=== PATIENT | male | born 1960 | race Caucasian/White ===

== ENCOUNTER 2017-11-09 15:15 | Emergency (ER) | payer OTHER ==
[2017-11-09] MEDS: morphine 4 MG/ML VIAL IV (16:06)
[2017-11-09 16:12] LABS: ADD MAN DIFF? NO
[2017-11-09 16:14] LABS: WHITE BLOOD COUNT 5.6 10^3/ul (4.8-10.8)
[2017-11-09 16:14] LABS: BASOPHILS % 0.5 % (0.0-2.0); EOSINOPHILS # 0.2 10^3/ul (0.0-0.5); HEMATOCRIT 37.7 % (42.0-52.0); HEMOGLOBIN 13.6 g/dl (14.0-18.0); LYMPHOCYTES # 1.6 10^3/ul (0.8-2.9); LYMPHOCYTES % 29.2 % (15.0-51.0); MEAN CORPUSCULAR HEMOGLOBIN 31.6 pg (29.0-33.0); MEAN CORPUSCULAR HGB CONC 36.1 g/dl (32.0-37.0); MEAN CORPUSCULAR VOLUME 87.5 fl (82.0-101.0); MEAN PLATELET VOLUME 10.7 fl (7.4-10.4); MONOCYTE # 0.6 10^3/ul (0.3-0.9); NEUTROPHIL # 3.2 10^3/ul (1.6-7.5); NEUTROPHILS % 57.1 % (39.0-77.0); PLATELET COUNT 248 10^3/UL (140-415); RED BLOOD COUNT 4.31 10^6/ul (4.70-6.10)
[2017-11-09 16:22] LABS: ADD UMIC YES; UR ASCORBIC ACID 20 mg/dL (NEGATIVE); UR BILIRUBIN (Dip) NEGATIVE (NEGATIVE); UR BLOOD (Dip) 3+ mg/dL (NEGATIVE); UR CLARITY SLIGHTLY CLOUDY (CLEAR); UR COLOR YELLOW (YELLOW); UR GLUCOSE (Dip) 3+ mg/dL (NEGATIVE); UR KETONES (Dip) NEGATIVE (NEGATIVE); UR LEUKOCYTE ESTERASE (Dip) NEGATIVE Leu/ul (NEGATIVE); UR NITRITE (Dip) NEGATIVE (NEGATIVE); UR RBC > 182 /HPF (0-5); UR SPECIFIC GRAVITY (Dip) 1.018 (1.003-1.030); UR TOTAL PROTEIN (Dip) 2+ mg/dl (NEGATIVE); UR UROBILINOGEN (Dip) NEGATIVE (NEGATIVE); UR WBC 9 /HPF (0-5)
[2017-11-09 17:09] LABS: ALANINE AMINOTRANSFERASE 44 IU/L (13-69); ALBUMIN/GLOBULIN RATIO 1.25; ALKALINE PHOSPHATASE 98 IU/L (42-121); ANION GAP 19 (8-16); ASPARTATE AMINO TRANSFERASE 35 IU/L (15-46); BILIRUBIN,INDIRECT 0.2 mg/dl (0-1.1); BILIRUBIN,TOTAL 0.2 mg/dl (0.2-1.3); BLOOD UREA NITROGEN 31 mg/dl (7-20); CALCIUM 10.4 mg/dl (8.4-10.2); CARBON DIOXIDE 19 mmol/L (21-31); CHLORIDE 104 mmol/L (97-110); CREATININE 1.18 mg/dl (0.61-1.24); GLUCOSE 302 mg/dl (70-220); POTASSIUM 4.9 mmol/L (3.5-5.1); SODIUM 137 mmol/L (135-144)
[2017-11-09] MEDS: SOD CHLORIDE 0.9% 500 ML IV (17:17)
[2017-11-09] MEDS: SOD CHLORIDE 0.9% 1,000 ML IV (17:17)
[2017-11-09] MEDS: OXYCODONE/ACETAMINOPHEN (10/325) TAB PO (18:18)
== END 2017-11-09 18:32 | disposition home or self-care (01) ==
LOC: E/R 15:15
DX: R10.9 Unspecified abdominal pain (principal); I10 Essential (primary) hypertension
CPT/HCPCS: 36415; 71045; 76775; 80053; 81001; 85025; 87086; 96374; 99285-25

== ENCOUNTER 2017-11-14 16:42 | Emergency (ER) | payer OTHER ==
[2017-11-14] MEDS: FENTAnyl 50 MCG/ML VIAL IV (17:17)
[2017-11-14] MEDS: ONDANSETRON 4 MG INJ IV (17:17)
[2017-11-14] MEDS: SOD CHLORIDE 0.9% 1,000 ML IV (17:17)
[2017-11-14] MEDS: KETOROLAC 15 MG INJ IV (17:17)
[2017-11-14 17:38] LABS: ADD MAN DIFF? NO
[2017-11-14 17:40] LABS: BASOPHILS % 0.6 % (0.0-2.0); EOSINOPHILS # 0.2 10^3/ul (0.0-0.5); EOSINOPHILS % 3.4 % (0.0-7.0); HEMATOCRIT 35.9 % (42.0-52.0); LYMPHOCYTES # 1.4 10^3/ul (0.8-2.9); MEAN CORPUSCULAR HEMOGLOBIN 31.6 pg (29.0-33.0); MEAN CORPUSCULAR HGB CONC 36.2 g/dl (32.0-37.0); MEAN CORPUSCULAR VOLUME 87.3 fl (82.0-101.0); MEAN PLATELET VOLUME 10.5 fl (7.4-10.4); MONOCYTE # 0.4 10^3/ul (0.3-0.9); MONOCYTES % 9.2 % (0.0-11.0); NEUTROPHIL # 2.6 10^3/ul (1.6-7.5); NEUTROPHILS % 56.6 % (39.0-77.0); PLATELET COUNT 262 10^3/UL (140-415); RED BLOOD COUNT 4.11 10^6/ul (4.70-6.10); RED CELL DISTRIBUTION WIDTH 12.3 % (11.5-14.5)
[2017-11-14 17:40] LABS: WHITE BLOOD COUNT 4.7 10^3/ul (4.8-10.8)
[2017-11-14 17:59] LABS: ALANINE AMINOTRANSFERASE 99 IU/L (13-69); ALBUMIN 4.9 g/dl (3.3-4.9); ALBUMIN/GLOBULIN RATIO 1.32; ALKALINE PHOSPHATASE 86 IU/L (42-121); ANION GAP 16 (8-16); ASPARTATE AMINO TRANSFERASE 108 IU/L (15-46); BILIRUBIN,INDIRECT 0.3 mg/dl (0-1.1); BILIRUBIN,TOTAL 0.3 mg/dl (0.2-1.3); BLOOD UREA NITROGEN 19 mg/dl (7-20); CALCIUM 10.2 mg/dl (8.4-10.2); CARBON DIOXIDE 21 mmol/L (21-31); CHLORIDE 106 mmol/L (97-110); CREATININE 0.95 mg/dl (0.61-1.24); GLUCOSE 292 mg/dl (70-220); LIPASE 225 U/L (23-300); SODIUM 138 mmol/L (135-144); TOTAL PROTEIN 8.6 g/dl (6.1-8.1)
[2017-11-14 20:48] LABS: URINE BLOOD (Dip) POC 3+ (NEGATIVE); URINE KETONES (Dip) POC Negative (NEGATIVE); URINE LEUKOCYTE EST (Dip) POC Negative (NEGATIVE); URINE NITRITE (Dip) POC Negative (NEGATIVE); URINE TOTAL PROTEIN POC 2+ (NEGATIVE)
[2017-11-14 20:48] LABS: URINE PH (Dip) POC 5.5 (5.0-8.5)
[2017-11-14] MEDS: morphine 4 MG/ML VIAL IV (20:51)
== END 2017-11-14 21:21 | disposition home or self-care (01) ==
LOC: E/R 16:42
DX: N20.0 Calculus of kidney (principal); D64.9 Anemia, unspecified; R74.0 Nonspecific elevation of levels of transaminase and lactic acid dehydrogenase [LDH]; I10 Essential (primary) hypertension; E11.65 Type 2 diabetes mellitus with hyperglycemia; Z79.02 Long term (current) use of antithrombotics/antiplatelets; Z79.4 Long term (current) use of insulin
CPT/HCPCS: 36415; 71045; 74176; 80053; 81003; 83690; 85025; 93005; 96374; 96375; 99285-25

== ENCOUNTER 2017-11-21 13:22 | Emergency (ER) | payer OTHER ==
[2017-11-21] MEDS: ONDANSETRON (ODT) 4 MG TAB ODT (16:09)
[2017-11-21] MEDS: KETOROLAC 30 MG INJ IM (16:10)
== END 2017-11-21 16:41 | disposition home or self-care (01) ==
LOC: E/R 13:22
DX: R10.9 Unspecified abdominal pain (principal); I10 Essential (primary) hypertension; E11.9 Type 2 diabetes mellitus without complications; Z79.4 Long term (current) use of insulin; Z79.84 Long term (current) use of oral hypoglycemic drugs
CPT/HCPCS: 96372; 99284-25

== ENCOUNTER 2018-02-07 18:58 | Inpatient (IN) | payer OTHER ==
[2018-02-07] MEDS ORDERED: ONDANSETRON 4 MG INJ IV (20:30)
[2018-02-07] MEDS ORDERED: ACETAMINOPHEN 325 MG TAB PO (20:30)
[2018-02-07] MEDS ORDERED: DOCUSATE SODIUM 100 MG CAP PO (20:30)
[2018-02-07] MEDS ORDERED: BISACODYL (EC) 5 MG TAB PO (20:30)
[2018-02-07] MEDS ORDERED: NITROGLYCERIN (SL) 0.4 MG TAB SL (20:30)
[2018-02-07] MEDS ORDERED: NACL 0.9% 3 ML SYG IV (20:30)
[2018-02-07] MEDS ORDERED: TAMSULOSIN (SR) 0.4 MG CAP PO (21:00)
[2018-02-07 21:03] LABS: ADD MAN DIFF? NO
[2018-02-07 21:09] LABS: BASOPHILS % 0.8 % (0.0-2.0); EOSINOPHILS # 0.2 10^3/ul (0.0-0.5); EOSINOPHILS % 3.5 % (0.0-7.0); HEMATOCRIT 36.6 % (42.0-52.0); HEMOGLOBIN 13.3 g/dl (14.0-18.0); LYMPHOCYTES # 1.7 10^3/ul (0.8-2.9); LYMPHOCYTES % 32.2 % (15.0-51.0); MEAN CORPUSCULAR HEMOGLOBIN 32.5 pg (29.0-33.0); MEAN CORPUSCULAR HGB CONC 36.3 g/dl (32.0-37.0); MEAN CORPUSCULAR VOLUME 89.5 fl (82.0-101.0); MEAN PLATELET VOLUME 9.8 fl (7.4-10.4); MONOCYTE # 0.5 10^3/ul (0.3-0.9); MONOCYTES % 8.9 % (0.0-11.0); NEUTROPHIL # 2.8 10^3/ul (1.6-7.5); NEUTROPHILS % 54.4 % (39.0-77.0); PLATELET COUNT 238 10^3/UL (140-415); RED BLOOD COUNT 4.09 10^6/ul (4.70-6.10); RED CELL DISTRIBUTION WIDTH 12.3 % (11.5-14.5)
[2018-02-07 21:09] LABS: WHITE BLOOD COUNT 5.2 10^3/ul (4.8-10.8)
[2018-02-07 21:28] LABS: ALANINE AMINOTRANSFERASE 67 IU/L (13-69); ALBUMIN 4.6 g/dl (3.3-4.9); ALBUMIN/GLOBULIN RATIO 1.43; ALKALINE PHOSPHATASE 55 IU/L (42-121); ANION GAP 15 (8-16); ASPARTATE AMINO TRANSFERASE 57 IU/L (15-46); BILIRUBIN,INDIRECT 0.4 mg/dl (0-1.1); BILIRUBIN,TOTAL 0.4 mg/dl (0.2-1.3); BLOOD UREA NITROGEN 19 mg/dl (7-20); CALCIUM 10.2 mg/dl (8.4-10.2); CARBON DIOXIDE 21 mmol/L (21-31); CHLORIDE 108 mmol/L (97-110); CREATINE KINASE 91 IU/L (23-200); GLUCOSE 123 mg/dl (70-220); POTASSIUM 4.1 mmol/L (3.5-5.1); SODIUM 140 mmol/L (135-144); TOTAL PROTEIN 7.8 g/dl (6.1-8.1)
[2018-02-07 21:40] LABS: CK INDEX 1.1; CK-MB 1.01 ng/ml (0.0-2.4); TROPONIN-I < 0.012 ng/ml (0.000-0.120)
[2018-02-07] MEDS: METOPROLOL 50 MG TAB PO (21:51)
[2018-02-07] MEDS: GEMFIBROZIL 600 MG TAB PO (21:52)
[2018-02-07] MEDS: EZETIMIBE 10 MG TAB PO (21:52)
[2018-02-07] MEDS ORDERED: LISPRO SQ (22:30)
[2018-02-07] MEDS ORDERED: GLUCOSE GEL 15 GRAM TUBE BUCCAL (22:30)
[2018-02-07] MEDS ORDERED: [UNRECOGNIZED DRUG - OTHER] SQ (22:30)
[2018-02-07] MEDS ORDERED: INSULIN LISPRO PROTAMIN SQ (22:30)
[2018-02-07] MEDS ORDERED: GLUCOSE GEL 15 GRAM TUBE PO ×2 (22:30)
[2018-02-07] MEDS ORDERED: DEXTROSE 50% 50 ML SYRINGE IV ×2 (22:30)
[2018-02-07] MEDS ORDERED: GLUCAGON 1 MG INJ IM (22:30)
[2018-02-08] MEDS: INSULIN LISPRO PROT/LISP (75/25) 3ML KWIKPEN SC ×3 (00:21→21:38)
[2018-02-08] MEDS: INSULIN ASPART [NOVOLOG] 3 ML PEN SC ×5 (00:21→21:41)
[2018-02-08] MEDS: KETOROLAC 15 MG INJ IV ×2 (00:28→15:33)
[2018-02-08] MEDS: ACCU-CHEK XX (02:00)
[2018-02-08 04:43] LABS: ADD MAN DIFF? NO
[2018-02-08 04:45] LABS: WHITE BLOOD COUNT 5.6 10^3/ul (4.8-10.8)
[2018-02-08 04:45] LABS: BASOPHILS % 0.5 % (0.0-2.0); EOSINOPHILS # 0.2 10^3/ul (0.0-0.5); EOSINOPHILS % 3.6 % (0.0-7.0); HEMATOCRIT 35.5 % (42.0-52.0); HEMOGLOBIN 12.7 g/dl (14.0-18.0); LYMPHOCYTES # 1.4 10^3/ul (0.8-2.9); LYMPHOCYTES % 25.9 % (15.0-51.0); MEAN CORPUSCULAR HEMOGLOBIN 31.8 pg (29.0-33.0); MEAN CORPUSCULAR HGB CONC 35.8 g/dl (32.0-37.0); MONOCYTE # 0.6 10^3/ul (0.3-0.9); NEUTROPHIL # 3.3 10^3/ul (1.6-7.5); NEUTROPHILS % 58.6 % (39.0-77.0); PLATELET COUNT 244 10^3/UL (140-415); RED BLOOD COUNT 3.99 10^6/ul (4.70-6.10); RED CELL DISTRIBUTION WIDTH 12.2 % (11.5-14.5)
[2018-02-08 05:07] LABS: CREATINE KINASE 75 IU/L (23-200)
[2018-02-08 05:17] LABS: CK INDEX 1.5
[2018-02-08 05:33] LABS: ALANINE AMINOTRANSFERASE 65 IU/L (13-69); ALBUMIN/GLOBULIN RATIO 1.25; ALKALINE PHOSPHATASE 56 IU/L (42-121); ANION GAP 13 (8-16); ASPARTATE AMINO TRANSFERASE 49 IU/L (15-46); BILIRUBIN,INDIRECT 0.2 mg/dl (0-1.1); BILIRUBIN,TOTAL 0.2 mg/dl (0.2-1.3); BLOOD UREA NITROGEN 25 mg/dl (7-20); CALCIUM 10.2 mg/dl (8.4-10.2); CARBON DIOXIDE 22 mmol/L (21-31); CHLORIDE 110 mmol/L (97-110); CHOL/HDL RATIO 6.2 RATIO; CHOLESTEROL 211 mg/dl (100-200); CREATININE 1.22 mg/dl (0.61-1.24); GLUCOSE 121 mg/dl (70-220); HDL CHOLESTEROL 34 mg/dl (28-71); LDL CHOLESTEROL,CALCULATED 123 mg/dl; MAGNESIUM 1.9 mg/dl (1.7-2.5); SODIUM 141 mmol/L (135-144); TOTAL PROTEIN 7.2 g/dl (6.1-8.1); TRIGLYCERIDES 269 mg/dl (0-149)
[2018-02-08 05:46] LABS: D-DIMER 377.13 ng/ml (<460)
[2018-02-08 05:57] LABS: TROPONIN-I < 0.012 ng/ml (0.000-0.120)
[2018-02-08 06:12] LABS: HEMOGLOBIN A1C 9.2 % (0-5.9)
[2018-02-08] MEDS ORDERED: THIAMINE PO (09:00)
[2018-02-08] MEDS: BENAZEPRIL 40 MG TAB PO (09:02)
[2018-02-08] MEDS: MULTIVITAMINS THERAPEUTIC TAB PO (09:02)
[2018-02-08] MEDS: FISH OIL 1,000 MG CAP PO (09:02)
[2018-02-08] MEDS: CLOPIDOGREL 75 MG TAB PO (09:03)
[2018-02-08] MEDS: THIAMINE 100 MG TAB PO (09:03)
[2018-02-08] MEDS: GEMFIBROZIL 600 MG TAB PO ×2 (09:03→21:29)
[2018-02-08] MEDS: MULTIVITAMINS/MINERALS TAB PO (09:03)
[2018-02-08] MEDS: VITAMIN E 1,000 UNIT CAP PO (09:03)
[2018-02-08] MEDS: METOPROLOL 50 MG TAB PO ×2 (09:04→21:30)
[2018-02-08 15:11] LABS: CREATINE KINASE 61 IU/L (23-200)
[2018-02-08 15:22] LABS: CK INDEX 0.9; CK-MB 0.52 ng/ml (0.0-2.4); TROPONIN-I < 0.012 ng/ml (0.000-0.120)
[2018-02-08 16:38] LABS: B-TYPE NATRIURETIC PEPTIDE 71 PG/ML (0-125)
[2018-02-08] MEDS: morphine 2 MG INJ IV ×2 (18:27→22:43)
[2018-02-08 19:15] LABS: TROPONIN-I < 0.012 ng/ml (0.000-0.120)
[2018-02-08] MEDS: EZETIMIBE 10 MG TAB PO (21:30)
[2018-02-09] MEDS: ACCU-CHEK XX (02:00)
[2018-02-09 02:03] LABS: TROPONIN-I < 0.012 ng/ml (0.000-0.120)
[2018-02-09] MEDS: INSULIN ASPART [NOVOLOG] 3 ML PEN SC ×4 (07:55→20:53)
[2018-02-09] MEDS: CLOPIDOGREL 75 MG TAB PO (08:44)
[2018-02-09] MEDS: MULTIVITAMINS THERAPEUTIC TAB PO (08:44)
[2018-02-09] MEDS: GEMFIBROZIL 600 MG TAB PO ×2 (08:45→20:43)
[2018-02-09] MEDS: BENAZEPRIL 40 MG TAB PO (08:45)
[2018-02-09] MEDS: VITAMIN E 1,000 UNIT CAP PO (08:46)
[2018-02-09] MEDS: FISH OIL 1,000 MG CAP PO (08:46)
[2018-02-09] MEDS: MULTIVITAMINS/MINERALS TAB PO (08:46)
[2018-02-09] MEDS: METOPROLOL 50 MG TAB PO ×2 (08:47→20:44)
[2018-02-09] MEDS: THIAMINE 100 MG TAB PO (08:48)
[2018-02-09] MEDS: INSULIN LISPRO PROT/LISP (75/25) 3ML KWIKPEN SC ×2 (09:16→20:53)
[2018-02-09] MEDS: morphine 2 MG INJ IV ×2 (13:33→22:13)
[2018-02-09] MEDS: KETOROLAC 30 MG INJ IV (16:35)
[2018-02-09] MEDS: hydrALAzine 20 MG INJ IV (16:36)
[2018-02-09] MEDS: EZETIMIBE 10 MG TAB PO (20:43)
[2018-02-10] MEDS: INSULIN ASPART [NOVOLOG] 3 ML PEN SC ×4 (07:55→22:14)
[2018-02-10] MEDS: METOPROLOL 50 MG TAB PO ×2 (08:34→21:52)
[2018-02-10] MEDS: FISH OIL 1,000 MG CAP PO (08:34)
[2018-02-10] MEDS: CLOPIDOGREL 75 MG TAB PO (08:35)
[2018-02-10] MEDS: THIAMINE 100 MG TAB PO (08:35)
[2018-02-10] MEDS: BENAZEPRIL 40 MG TAB PO (08:35)
[2018-02-10] MEDS: MULTIVITAMINS THERAPEUTIC TAB PO (08:36)
[2018-02-10] MEDS: GEMFIBROZIL 600 MG TAB PO ×2 (08:36→21:48)
[2018-02-10] MEDS: VITAMIN E 1,000 UNIT CAP PO (08:37)
[2018-02-10] MEDS: MULTIVITAMINS/MINERALS TAB PO (08:37)
[2018-02-10] MEDS: INSULIN LISPRO PROT/LISP (75/25) 3ML KWIKPEN SC ×2 (08:37→22:13)
[2018-02-10] MEDS: REGADENOSON 0.4 MG/5 ML SYG (11:49)
[2018-02-10] MEDS: KETOROLAC 30 MG INJ IV (14:27)
[2018-02-10] MEDS: EZETIMIBE 10 MG TAB PO (21:48)
[2018-02-10] MEDS: morphine 2 MG INJ IV (22:18)
[2018-02-11] MEDS: INSULIN LISPRO PROT/LISP (75/25) 3ML KWIKPEN SC (07:52)
[2018-02-11] MEDS: INSULIN ASPART [NOVOLOG] 3 ML PEN SC ×2 (07:52→11:54)
[2018-02-11] MEDS: FISH OIL 1,000 MG CAP PO (08:21)
[2018-02-11] MEDS: MULTIVITAMINS THERAPEUTIC TAB PO (08:21)
[2018-02-11] MEDS: GEMFIBROZIL 600 MG TAB PO (08:22)
[2018-02-11] MEDS: METOPROLOL 50 MG TAB PO (08:22)
[2018-02-11] MEDS: CLOPIDOGREL 75 MG TAB PO (08:22)
[2018-02-11] MEDS: BENAZEPRIL 40 MG TAB PO (08:22)
[2018-02-11] MEDS: THIAMINE 100 MG TAB PO (08:23)
[2018-02-11] MEDS: VITAMIN E 1,000 UNIT CAP PO (08:23)
[2018-02-11] MEDS: MULTIVITAMINS/MINERALS TAB PO (08:24)
[2018-02-11] MEDS: morphine 2 MG INJ IV (14:49)
== END 2018-02-11 16:46 | disposition home or self-care (01) | DRG 313 ==
LOC: TEL 18:58
PROVIDERS: Internal Medicine
DX: R07.89 Other chest pain (principal); I16.1 Hypertensive emergency; I69.954 Hemiplegia and hemiparesis following unspecified cerebrovascular disease affecting left non-dominant side; E11.9 Type 2 diabetes mellitus without complications; I10 Essential (primary) hypertension; E78.5 Hyperlipidemia, unspecified; H54.62 Unqualified visual loss, left eye, normal vision right eye; I69.998 Other sequelae following unspecified cerebrovascular disease; E66.9 Obesity, unspecified; Z68.28 Body mass index [BMI] 28.0-28.9, adult; Z79.02 Long term (current) use of antithrombotics/antiplatelets; Z79.4 Long term (current) use of insulin; Z98.62 Peripheral vascular angioplasty status
CPT/HCPCS: 78452; 80053; 80061; 82550; 82553; 82962; 83036; 83735; 83880; 84443; 84484; 85025; 85378; 87081; 93005; 93017; 93306; 93970; 99217; G0378

== ENCOUNTER 2018-03-14 11:31 | Emergency (ER) | payer SELFPAY, OTHER | END 2018-03-14 13:13 | disposition left against medical advice (07) | LOC: FTE 11:31 | DX: Z53.21 Procedure and treatment not carried out due to patient leaving prior to being seen by health care provider (principal) ==

== ENCOUNTER 2018-05-15 17:39 | Emergency (ER) | payer SELFPAY | END 2018-05-15 21:42 | disposition left against medical advice (07) | LOC: E/R 17:39 | DX: Z53.21 Procedure and treatment not carried out due to patient leaving prior to being seen by health care provider (principal) ==

== ENCOUNTER 2018-05-16 11:52 | Emergency (ER) | payer OTHER ==
[2018-05-16] MEDS: KETOROLAC 30 MG INJ IV (13:24)
[2018-05-16] MEDS: SOD CHLORIDE 0.9% 1,000 ML IV (13:24)
[2018-05-16] MEDS: ONDANSETRON 4 MG INJ IV (13:25)
[2018-05-16 13:32] LABS: ADD MAN DIFF? NO
[2018-05-16 13:47] LABS: BASOPHILS % 0.7 % (0.0-2.0); EOSINOPHILS # 0.2 10^3/ul (0.0-0.5); HEMATOCRIT 37.9 % (42.0-52.0); HEMOGLOBIN 13.7 g/dl (14.0-18.0); LYMPHOCYTES # 1.7 10^3/ul (0.8-2.9); LYMPHOCYTES % 29.8 % (15.0-51.0); MEAN CORPUSCULAR HEMOGLOBIN 32.5 pg (29.0-33.0); MEAN CORPUSCULAR HGB CONC 36.1 g/dl (32.0-37.0); MEAN PLATELET VOLUME 10.1 fl (7.4-10.4); MONOCYTE # 0.6 10^3/ul (0.3-0.9); MONOCYTES % 10.4 % (0.0-11.0); NEUTROPHIL # 3.2 10^3/ul (1.6-7.5); NEUTROPHILS % 54.6 % (39.0-77.0); PLATELET COUNT 270 10^3/UL (140-415); RED BLOOD COUNT 4.21 10^6/ul (4.70-6.10); RED CELL DISTRIBUTION WIDTH 12.3 % (11.5-14.5)
[2018-05-16 13:47] LABS: WHITE BLOOD COUNT 5.8 10^3/ul (4.8-10.8)
[2018-05-16 13:55] LABS: ALANINE AMINOTRANSFERASE 66 IU/L (13-69); ALBUMIN/GLOBULIN RATIO 1.35; ALKALINE PHOSPHATASE 65 IU/L (42-121); ANION GAP 14 (5-13); ASPARTATE AMINO TRANSFERASE 62 IU/L (15-46); BILIRUBIN,INDIRECT 0.4 mg/dl (0-1.1); BILIRUBIN,TOTAL 0.4 mg/dl (0.2-1.3); BLOOD UREA NITROGEN 17 mg/dl (7-20); CALCIUM 10.2 mg/dl (8.4-10.2); CARBON DIOXIDE 21 mmol/L (21-31); CHLORIDE 104 mmol/L (97-110); CREATININE 0.89 mg/dl (0.61-1.24); Estimated GFR > 60 mL/min (>60); GLUCOSE 124 mg/dl (70-220); LIPASE 234 U/L (23-300); POTASSIUM 4.7 mmol/L (3.5-5.1); SODIUM 139 mmol/L (135-144); TOTAL PROTEIN 8.7 g/dl (6.1-8.1)
== END 2018-05-16 14:56 | disposition home or self-care (01) ==
LOC: E/R 11:52
DX: R10.84 Generalized abdominal pain (principal); K59.00 Constipation, unspecified; I10 Essential (primary) hypertension; Z79.82 Long term (current) use of aspirin; Z79.4 Long term (current) use of insulin; Z86.73 Personal history of transient ischemic attack (TIA), and cerebral infarction without residual deficits
CPT/HCPCS: 36415; 71045; 74018; 80053; 83690; 85025; 96374; 96375; 99285-25

== ENCOUNTER 2018-09-15 16:25 | Emergency (ER) | payer OTHER ==
[2018-09-15] MEDS ORDERED: NITROGLYCERIN (SL) 0.4 MG TAB SL ×2 (19:30→21:00)
[2018-09-15 19:48] LABS: ADD MAN DIFF? NO
[2018-09-15] MEDS: METOPROLOL 5 MG INJ IV ×3 (19:56→20:38)
[2018-09-15] MEDS: ASPIRIN 81 MG TAB PO ×2 (19:56→20:05)
[2018-09-15] MEDS: NITROGLYCERIN 2% 1 GM OINT PKT TD (19:56)
[2018-09-15] MEDS: ACETAMINOPHEN 325 MG TAB PO (19:56)
[2018-09-15 19:59] LABS: BASOPHILS % 0.6 % (0.0-2.0); EOSINOPHILS # 0.2 10^3/ul (0.0-0.5); EOSINOPHILS % 3.8 % (0.0-7.0); HEMATOCRIT 38.1 % (42.0-52.0); HEMOGLOBIN 13.4 g/dl (14.0-18.0); LYMPHOCYTES # 1.9 10^3/ul (0.8-2.9); LYMPHOCYTES % 35.5 % (15.0-51.0); MEAN CORPUSCULAR HEMOGLOBIN 31.5 pg (29.0-33.0); MEAN CORPUSCULAR HGB CONC 35.2 g/dl (32.0-37.0); MEAN CORPUSCULAR VOLUME 89.6 fl (82.0-101.0); MONOCYTE # 0.5 10^3/ul (0.3-0.9); MONOCYTES % 10.2 % (0.0-11.0); NEUTROPHIL # 2.6 10^3/ul (1.6-7.5); NEUTROPHILS % 49.5 % (39.0-77.0); PLATELET COUNT 252 10^3/UL (140-415); RED BLOOD COUNT 4.25 10^6/ul (4.70-6.10); RED CELL DISTRIBUTION WIDTH 12.4 % (11.5-14.5)
[2018-09-15 19:59] LABS: WHITE BLOOD COUNT 5.3 10^3/ul (4.8-10.8)
[2018-09-15 20:07] LABS: ANION GAP 12 (5-13); BLOOD UREA NITROGEN 21 mg/dl (7-20); CALCIUM 10.6 mg/dl (8.4-10.2); CARBON DIOXIDE 20 mmol/L (21-31); CHLORIDE 106 mmol/L (97-110); Estimated GFR > 60 mL/min (>60); GLUCOSE 228 mg/dl (70-220); POTASSIUM 4.2 mmol/L (3.5-5.1); SODIUM 138 mmol/L (135-144)
[2018-09-15] MEDS: KETOROLAC 30 MG INJ IV (20:12)
[2018-09-15 20:19] LABS: TROPONIN-I < 0.012 ng/ml (0.000-0.120)
[2018-09-15] MEDS: niCARdipine-NS 0.1MG/ML DRIP 200 ML IV (20:47)
[2018-09-15] MEDS ORDERED: ACETAMINOPHEN 650MG/20.3ML CUP PO (21:00)
[2018-09-15] MEDS ORDERED: DOCUSATE SODIUM 100 MG CAP PO (21:00)
[2018-09-15] MEDS ORDERED: GEMFIBROZIL 600 MG TAB PO (21:00)
[2018-09-15] MEDS ORDERED: niCARdipine 25 MG in SOD CHLORIDE 0.9% 240 ML IV (21:00)
[2018-09-15] MEDS ORDERED: EZETIMIBE 10 MG TAB PO (21:00)
[2018-09-15] MEDS ORDERED: morphine 2 MG INJ IV (21:00)
[2018-09-15] MEDS ORDERED: BISACODYL (EC) 5 MG TAB PO (21:00)
[2018-09-15] MEDS ORDERED: HYDROCODONE/APAP (5/325) TAB PO (21:00)
[2018-09-15] MEDS ORDERED: ONDANSETRON 4 MG INJ IV (21:00)
[2018-09-15 21:41] LABS: HEMOGLOBIN A1C 8.8 % (0-5.9)
[2018-09-16] MEDS ORDERED: PANTOPRAZOLE (EC) 40 MG TAB PO (06:00)
[2018-09-16] MEDS ORDERED: CLOPIDOGREL 75 MG TAB PO (09:00)
[2018-09-16] MEDS ORDERED: [UNRECOGNIZED DRUG - OTHER] PO (09:00)
[2018-09-16] MEDS ORDERED: THIAMINE 100 MG TAB PO (09:00)
[2018-09-16] MEDS ORDERED: FISH OIL 1,000 MG CAP PO (09:00)
[2018-09-16] MEDS ORDERED: ASPIRIN (EC) 81 MG TAB PO (09:00)
[2018-09-16] MEDS ORDERED: MULTIVITAMINS THERAPEUTIC TAB PO (09:00)
[2018-09-16] MEDS ORDERED: POLYETHYLENE GLYCOL 17 GM PACKET PO (09:00)
[2018-09-16] MEDS ORDERED: VITAMIN E 1,000 UNIT CAP PO (09:00)
== END 2018-09-15 22:00 | disposition left against medical advice (07) ==
LOC: E/R 16:25
DX: I16.1 Hypertensive emergency (principal); R51 Headache; I10 Essential (primary) hypertension; E11.9 Type 2 diabetes mellitus without complications; Z79.01 Long term (current) use of anticoagulants; Z79.4 Long term (current) use of insulin; Z79.82 Long term (current) use of aspirin; Z86.73 Personal history of transient ischemic attack (TIA), and cerebral infarction without residual deficits
CPT/HCPCS: 36415; 71045; 80048; 83036; 84484; 85025; 93005; 96365; 96375; 99285-25

== ENCOUNTER 2019-02-24 11:16 | Emergency (ER) | payer OTHER ==
[2019-02-24] MEDS: SOD CHLORIDE 0.9% 840 ML IV (12:03)
[2019-02-24] MEDS: INSULIN LISPRO 100 UNIT/ML VIAL SC (13:50)
[2019-02-24] MEDS: KETOROLAC 30 MG INJ IV (13:59)
[2019-02-24] MEDS: HYDROCODONE/APAP (10/325) TAB PO (14:00)
[2019-02-24] MEDS: ACCU-CHEK XX (14:29)
== END 2019-02-24 14:40 | disposition home or self-care (01) ==
LOC: E/R 11:16
DX: E11.65 Type 2 diabetes mellitus with hyperglycemia (principal); I10 Essential (primary) hypertension; Z79.02 Long term (current) use of antithrombotics/antiplatelets; Z79.4 Long term (current) use of insulin; Z79.82 Long term (current) use of aspirin; Z86.73 Personal history of transient ischemic attack (TIA), and cerebral infarction without residual deficits; Z87.891 Personal history of nicotine dependence
CPT/HCPCS: 36415; 80048; 81001; 82803; 82962; 83735; 84100; 85025; 96372; 99284-25